=== PATIENT | male | born 1995 | race Asian ===

== ENCOUNTER 2019-07-14 00:46 | Emergency (ER) | payer SELFPAY ==
[~2019-07-14] VITALS: Ht 170.2 cm; Wt 81.6 kg
[2019-07-14 00:46] VITALS: BP 114/78
--- NOTE | 2019-07-14 00:46 | NUR ---
DIANE OMER, PREBOOK. TAKEN TO CHAIR B
--- NOTE | 2019-07-14 00:46 | NUR ---
23 Y/O MALE PRESENTS TO ED FOR PREBOOK. PT C/O GEN PAIN. 06/06. VSS. ALERT TO NAME, PLACE, TIME, AND EVENT. ER MD AWARE. BLANCA OMER AT CHAIRSIDE. CONTINUE TO MONITOR.
--- NOTE | 2019-07-14 00:50 | NUR ---
Dr. Jansen examining patient.
[2019-07-14] MEDS ORDERED: CEPHALEXIN 500 MG CAP PO ONE (00:55)
[2019-07-14] MEDS ORDERED: SULFAMETH/TRIMETH DS 800/160MG 1 TAB PO ONE (00:55)
[2019-07-14] MEDS ORDERED: IBUPROFEN 600 MG TAB PO ONE (00:55)
[2019-07-14 01:05] VITALS: BP 114/78
--- NOTE | 2019-07-14 01:05 | NUR ---
Patient discharged with v/s stable. Written and verbal after care instructions given and explained. Patient alert, oriented and verbalized understanding of instructions. Ambulatory with [place] [employer] in custody. All questions addressed prior to discharge. ID band removed. Patient advised to follow up with PMD. Rx of BACTRIM, KEFLEX, IBUPROFEN given. Patient educated on indication of medication including possible reaction and side effects. Opportunity to ask questions provided and answered.
== END 2019-07-14 01:05 | disposition home or self-care (01) ==
LOC: MED 00:46
DX: S81.801A Unspecified open wound, right lower leg, initial encounter (principal); L08.9 Local infection of the skin and subcutaneous tissue, unspecified; F15.10 Other stimulant abuse, uncomplicated; X58.XXXA Exposure to other specified factors, initial encounter; Y93.89 Activity, other specified; Y92.89 Other specified places as the place of occurrence of the external cause; Y99.8 Other external cause status
CPT/HCPCS: 99284

== ENCOUNTER 2019-12-09 11:54 | Emergency (ER) | payer SELFPAY ==
[~2019-12-09] VITALS: Ht 172.7 cm; Wt 93.0 kg
[2019-12-09 11:58] VITALS: BP 145/76
[2019-12-09] MEDS: IBUPROFEN 600 MG TAB PO ONE (12:43)
[2019-12-09] MEDS: ACETAMINOPHEN 325 MG TAB PO ONE (12:43)
[2019-12-09 12:53] VITALS: BP 145/76
--- NOTE | 2019-12-09 12:53 | NUR ---
PATIENT BIB [place] [employer]. PATIENT EXAMINED BY DR. OLSON. PATIENT MEDICALLY CLEARED AND RELEASED IN CUSTODY IN STABLE CONDITION. ORIGINAL PRE-BOOK FORM GIVEN TO OFFICER APOLLO.
--- NOTE | 2019-12-09 13:10 | NUR ---
Patient discharged with v/s stable. Written and verbal after care instructions given and explained. Patient verbalized understanding. Police with in custody. All questions addressed prior to discharge. Advised to follow up with PMD.
== END 2019-12-09 13:10 | disposition home or self-care (01) ==
LOC: MED 11:54
DX: M54.5 Low back pain (principal); J45.909 Unspecified asthma, uncomplicated; Z02.89 Encounter for other administrative examinations
CPT/HCPCS: 99283